=== PATIENT | female | born 1985 | race Caucasian/White ===

== ENCOUNTER → 2016-10-20 | Outpatient (CLI) | payer OTHER ==
[2016-10-20 10:18] LABS: CHOLESTEROL/HDL RATIO 3.2; THYROID STIMULATING HORMONE 3.12 uIu/ml (0.300-4.500)
== END | disposition home or self-care (01) ==
LOC: C.LAB 07:39
PROVIDERS: ATTEND Internal Medicine
DX: Z00.00 Encounter for general adult medical examination without abnormal findings (principal); E03.9 Hypothyroidism, unspecified; Z13.220 Encounter for screening for lipoid disorders; Z13.1 Encounter for screening for diabetes mellitus

== ENCOUNTER → 2016-11-10 | Outpatient (CLI) | payer OTHER | END | disposition home or self-care (01) | LOC: C.PAPS 12:58 | PROVIDERS: ATTEND Physician Assistant | DX: Z01.419 Encounter for gynecological examination (general) (routine) without abnormal findings (principal) ==

== ENCOUNTER → 2016-11-13 | Outpatient (CLI) | payer OTHER ==
--- NOTE | 2016-11-13 14:41 | DIAGNOSTIC IMAGING REPORT ---
RIGHT AXILLARY ULTRASOUND CLINICAL HISTORY: R52 right axillary pain Right COMPARISON STUDY: No previous studies for comparison. FINDINGS: 2 right axillary lymph nodes are visualized. A difficult to visualize deep node demonstrates mild cortical thickening. This is nonspecific. In the absence of a known malignancy this is likely reactive. Clinical follow-up is recommended. A follow-up ultrasound in 3 months would also seem prudent. IMPRESSION: 2 axillary lymph nodes are visualized, one of which demonstrates a mildly thickened cortex. Electronically signed by: Ross Bird M.D. 11/13/2016 2:39 PM Dictated Date/Time: 11/13/2016 2:36 PM
--- NOTE | 2016-11-13 14:51 | DIAGNOSTIC IMAGING REPORT ---
THYROID ULTRASOUND CLINICAL HISTORY: 31-year-old female with swelling and tenderness of the thyroid. TECHNIQUE: Grayscale and limited color Doppler ultrasound imaging of the dilated was performed. COMPARISON: None. FINDINGS: Right lobe: Heterogeneous echotexture of the mildly prominent right thyroid lobe, which measures 5.9 x 2.1 x 1.8 cm. Normal perfusion on color Doppler. No nodules. Left lobe: Similarly heterogeneous echotexture of the mildly prominent left thyroid lobe, which measures 5.2 x 1.9 x 1.7 cm. Slight hyperemia on color Doppler relative to the right. No nodules. Isthmus: Similar heterogeneous echotexture and thickened measuring 6 mm. No nodules. Cervical lymph nodes: Benign-appearing right cervical lymph node measuring 1.2 x 0.5 x 0.67 cm. IMPRESSION: Heterogeneous parenchyma with suggestion of hyperemia especially on the left could suggest acute/subacute thyroiditis. Correlation with TSH and thyroid hormone recommended. Electronically signed by: Jacques Rea M.D. 11/13/2016 2:50 PM Dictated Date/Time: 11/13/2016 2:45 PM
== END | disposition home or self-care (01) ==
LOC: C.ULTR 13:36
PROVIDERS: ATTEND Internal Medicine
DX: R52 Pain, unspecified (principal); R60.9 Edema, unspecified

== ENCOUNTER → 2016-11-23 | Outpatient (CLI) | payer OTHER ==
[2016-11-23 09:34] LABS: HEMATOCRIT 39.1 % (37-47); MEAN CELL VOLUME 86.3 fL (80-100); MEAN CORPUSCULAR HEMOGLOBIN 29.4 pg (25-34); RED BLOOD COUNT 4.53 M/uL (4.2-5.4); WHITE BLOOD COUNT 7.38 K/uL (4.8-10.8)
[2016-11-23 09:35] LABS: BASO % 0.4 %; BASO ABS # 0.03 K/uL (0-0.2); COMPLETE YES; EOS % 2.6 %; IG% 0.3 %; LYMPH % 24.8 %; LYMPH ABS # 1.83 K/uL (1.2-3.4); MEAN PLATELET VOLUME 10.2 fL (7.4-10.4); MONO % 9.3 %; NEUT % 62.6 %; PLATELET COUNT 277 K/uL (130-400)
[2016-11-23 09:56] LABS: C-REACTIVE PROTEIN 1.42 mg/dl (0-0.29); THYROID STIMULATING HORMONE 2.56 uIu/ml (0.300-4.500)
== END | disposition home or self-care (01) ==
LOC: C.LAB 07:50
PROVIDERS: ATTEND Internal Medicine
DX: E03.9 Hypothyroidism, unspecified (principal); D72.829 Elevated white blood cell count, unspecified; E06.9 Thyroiditis, unspecified

== ENCOUNTER → 2016-12-16 | Outpatient (CLI) | payer OTHER | END | disposition home or self-care (01) | LOC: C.LAB 08:10 | PROVIDERS: ATTEND Physician Assistant | DX: E03.9 Hypothyroidism, unspecified (principal) ==

== ENCOUNTER → 2017-02-08 | Outpatient (CLI) | payer OTHER ==
--- NOTE | 2017-02-08 11:31 | DIAGNOSTIC IMAGING REPORT ---
RIGHT AXILLARY ULTRASOUND CLINICAL HISTORY: R22.31 Lump of axilla, rightCompare with ultrasound completed Ju COMPARISON STUDY: Right axillary ultrasound November 13, 2016. FINDINGS: 2 right axillary lymph nodes were again visualized, as shown on exam of November 13, 2016. These were difficult to evaluate given depth within the left axilla with suboptimal penetration. The largest node measured 2.2 x 1.6 x 1.9 cm. This node previously measured 2.5 x 1.4 x 2.4 cm. Allowing for measurement variability, these nodes have not significantly changed. The cortex of these nodes is slightly thickened. IMPRESSION: No significant change in two minimally enlarged right axillary lymph nodes with mild cortical thickening since ultrasound of November 13, 2016. These nodes remain indeterminate and a follow-up right axillary ultrasound in 6 months is recommended. Electronically signed by: Yuri Somers M.D. 02/08/2017 11:30 AM Dictated Date/Time: 02/08/2017 11:26 AM
== END | disposition home or self-care (01) ==
LOC: C.ULTR 10:43
PROVIDERS: ATTEND Internal Medicine
DX: R22.31 Localized swelling, mass and lump, right upper limb (principal); R59.0 Localized enlarged lymph nodes

== ENCOUNTER → 2017-09-09 | Outpatient (CLI) | payer OTHER | END | disposition home or self-care (01) | LOC: C.PATHSPEC 17:03 | PROVIDERS: ATTEND Physician Assistant | DX: D23.72 Other benign neoplasm of skin of left lower limb, including hip (principal); D22.5 Melanocytic nevi of trunk ==

== ENCOUNTER → 2017-12-14 | Outpatient (CLI) | payer OTHER | END | disposition home or self-care (01) | LOC: C.LAB 07:36 | PROVIDERS: ATTEND Physician Assistant | DX: Z00.00 Encounter for general adult medical examination without abnormal findings (principal); E03.9 Hypothyroidism, unspecified ==

== ENCOUNTER 2018-11-29 15:39 | Inpatient (IN) ==
[2018-11-29] MEDS ORDERED: MoRPHine SULFATE 10 MG/ML CARP/VIAL IV STA (16:26)
[2018-11-29] MEDS ORDERED: CEFAZOLIN 2000MG 2,000 MG/15 ML SYR IV STA (16:54)
--- NOTE | 2018-11-29 17:02 | XRay Report ---
XR ankle RT min 3V routine CLINICAL HISTORY: A3 , right open wound/ankle injury trauma. Pain. COMPARISON: None. DISCUSSION: Fracture dislocation right ankle. Oblique fracture distal fibula. Small avulsion tip medi al malleolus. Disrupted ankle mortise. Small heel spur. Considerable soft tissue edema IMPRESSION: Bimalleolar fracture right ankle with disruption of ankle mortise. The above report was generated using voice recognition software. It may contain grammatical, syntax or spelling errors. Electronically signed by: Stoney Patel M.D. 11/29/2018 5:01 PM
--- NOTE | 2018-11-29 17:03 | XRay Report ---
XR foot RT min 3V routine CLINICAL HISTORY: trauma pain COMPARISON: None. DISCUSSION: Bimalleolar fracture right ankle again showing evidence for ankle mortise disruption. Right foot specifically is considered negative for acute bony pathology. Small heel spur is present. Subtalar joint appears to be intact. There is no evidence for soft tissue swelling. IMPRESSION: 1. No acute abnormality specifically of the right foot. 2. Bimalleolar fracture right ankle is again noted. The above report was generated using voice recognition software. It may contain grammatical, syntax or spelling errors. Electronically signed by: Stoney Patel M.D. 11/29/2018 5:02 PM
--- NOTE | 2018-11-29 17:04 | XRay Report ---
XR tibia fibula RT 2V CLINICAL HISTORY: trauma pain COMPARISON: None. DISCUSSION: The bones and joint spaces appear intact. There is no evidence of fracture, dislocation o r bony disease. There is no evidence for soft tissue swelling. Fracture of the ankle is again noted IMPRESSION: 1. Bimalleolar fracture right ankle which has been previously described. 2. No acute process of the proximal aspect of the lower leg. The above report was generated using voice recognition software. It may contain grammatical, syntax or spelling errors. Electronically signed by: Stoney Patel M.D. 11/29/2018 5:03 PM
[2018-11-29 17:06] LABS: Basophils # (auto) 0.03 K/uL (0-0.2); Basophils % (auto) 0.2 %; Eosinophils # (auto) 0.06 K/uL (0-0.5); Eosinophils % (auto) 0.4 %; Hematocrit (blood only) 39.6 % (37-47); Hemoglobin 13.8 g/dL (12.0-16.0); Immature Granulocytes # (auto) 0.05 K/uL (0.00-0.02); Immature Granulocytes % (auto) 0.3 %; Lymphocytes # (auto) 1.64 K/uL (1.2-3.4); Mean Corpuscular Hgb Conc 34.8 g/dL (32-36); Mean Corpuscular Volume 85.9 fL (80-100); Monocytes # (auto) 0.91 K/uL (0.11-0.59); Monocytes % (auto) 6.1 %; Neutrophils # (auto) 12.22 K/uL (1.4-6.5); Platelet Count 314 K/uL (130-400); RDW Coefficient of Variation 12.9 % (11.5-14.5); RDW Standard Deviation 40.3 fL (36.4-46.3); Red Blood Count 4.61 M/uL (4.2-5.4); White Blood Count 14.91 K/uL (4.8-10.8)
[2018-11-29 17:16] LABS: Prothrombin Time 9.9 Seconds (9.0-12.0)
--- NOTE | 2018-11-29 17:20 | History & Physical Report ---
Date of Service November 29, 2018 Assessment & Plan (1) Open ankle fracture: History of Present Illness Primary Care Provider: Jamila Roman MD 33 year old with Open Right Ankle Fracture from wooden stand falling on her earlier today Allergies Allergy/AdvReac Type Severity Reaction Status Date / Time coconut Allergy Mild GI SYMPTOMS Verified 11/29/18 16:07 Penicillins Allergy Mild . Verified 11/29/18 16:07 Home Medications Home Medications Medication Instructions Recorded Confirmed Type levothyroxine 88 mcg PO HS 11/29/18 11/29/18 History Past Med/Surg History Medical History Mood swings (Chronic) Hypothyroidism (Chronic) Elevated WBC count Family History Other Diabetes Heart disease Hypertension Multiple sclerosis Social History Preferred Language: Estonian Feels Safe at Home: Yes Smoking Status: Never smoker Physical Exam Physical Exam: >5 cm medial open wound. Displaced ankle fracture N/V intact. Eyes: PERRL, conjunctivae normal, anicteric sclerae Results & Data Vital Signs (Past 12 Hours) Vital Signs Temp Pulse Pulse Resp BP BP Pulse Ox 11/29/18 17:00 110 H 20 158/105 H 98 11/29/18 15:45 37 C 107 H 20 142/129 H 98
[2018-11-29 17:22] LABS: BUN Creatinine Ratio 13.1 (10-20); Creatinine Clr Calc Pharmacy 110.7 ml/min; Est GFR (African American) 85.1; Est GFR (Non-African American) 73.5; Potassium 3.5 mmol/L (3.5-5.1)
[2018-11-29] MEDS ORDERED: DIPHTHERIA/TETANUS/PERTUSSIS 0.5 ML SYR/VIAL IM ONE (17:37)
[2018-11-29] MEDS ORDERED: ONDANSETRON INJ 2 MG/ML 2 ML VIAL ONE (17:38)
[2018-11-29] MEDS ORDERED: fentaNYL citrate 100 MCG/2 ML VIAL ONE ×2 (17:38→19:03)
[2018-11-29] MEDS ORDERED: LIDOCAINE HCL 2% 2 ML VIAL/AMP(20MG/ML) INFIL ONE (17:38)
[2018-11-29] MEDS ORDERED: MIDAZOLAM HCL 1 MG/ML 2ML VIAL ONE (17:38)
[2018-11-29] MEDS ORDERED: PROPOFOL IV EMULSION 10 MG/ML 20 ML VIAL IV ONE (17:38)
[2018-11-29] MEDS ORDERED: DEXAMETHASONE SOD INJ 4 MG/ML VIAL ONE (17:38)
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
--- NOTE | 2018-11-29 17:40 | XRay Report ---
XR chest 1V portable CLINICAL HISTORY: pre-op trauma COMPARISON STUDY: No previous studies for comparison. FINDINGS: The bones soft tissues and hemidiaphragms are normal. The cardiomediastinal silhouette is n ormal. The lungs are clear. The pulmonary vasculature is normal. IMPRESSION: Negative chest. The above report was generated using voice recognition software. It may contain grammatical, syntax or spelling errors. Electronically signed by: Stoney Patel M.D. 11/29/2018 5:38 PM
[2018-11-29] MEDS ORDERED: BUPIVACAINE/EPINEPHRINE 0.5% MPF 1:200,000 30 ML VIAL ONE (17:41)
[2018-11-29] MEDS ORDERED: BACITRACIN INJ 50,000 UNIT VIAL ONE (17:41)
[2018-11-29] MEDS ORDERED: ROCURONIUM BROMIDE 10 MG/ML 5 ML VIAL ONE (18:11)
[2018-11-29] MEDS ORDERED: SUCCINYLCHOLINE CHLORIDE 20 MG/ML 10 ML VIAL ONE (18:11)
--- NOTE | 2018-11-29 18:29 | Anesthesiology Consultation ---
Date of Service November 29, 2018 Assessment & Plan Chart Review Chart Review: Acceptable Risk for Surgery and Patient NOT seen in Pre Admission Testing ASA [id number] Proposed Anesthesia Anesthesia Type: General History Surgery Operation Date: 11/29/18 17:35 Proposed Procedures p Open Reduction Internal Fixation Ankle(Right) - Uziel Park MD Height/Weight Height: 5 ft 6 in Weight: 132.2 kg Allergies Allergy/AdvReac Type Severity Reaction Status Date / Time coconut Allergy Mild GI SYMPTOMS Verified 11/29/18 16:07 Penicillins Allergy Mild . Verified 11/29/18 16:07 Medications Home Medications Medication Instructions Recorded Confirmed Last Taken levothyroxine 88 mcg PO HS 11/29/18 11/29/18 Unknown NPO Date Last Intake of Fluids: 11/29/18 Time Last Intake of Fluids: 12:00 Date Last Intake of Solids: 11/29/18 Time Last Intake of Solids: 12:00 Past Medical History Medical History Mood swings (Chronic) Hypothyroidism (Chronic) Elevated WBC count Exercise / Class Metabolic Activity II 4-5 Yardwork/Stairs/Walk up hill Past Family History Family History Other Diabetes Heart disease Hypertension Multiple sclerosis Past Anesthesia History No Hx of Anesthesia Complications History of PONV No Hx of PONV Social History Smoking Status: Never smoker Hx Alcohol Use: Yes Alcohol type: beer and wine alcohol intake frequency: a few times a month Hx Substance Use: No Physical Exam Vital Signs Last Vital Signs Temp 37 C 11/29/18 15:45 Pulse 98 H 11/29/18 17:32 Resp 18 11/29/18 17:32 BP 136/86 11/29/18 17:32 Pulse Ox 99 11/29/18 17:32 Constitutional + morbidly obese ENMT Mouth: no dentition abnormality Thyromental Distance: > or= 3.5 Finger Breadths Mallampati Class: II Respiratory normal respiratory effort Auscultation: lungs clear to auscultation bilaterally Cardiovascular Rate/Rhythm: regular rate and regular rhythm Testing Laboratory Results 11/29/18 Unknown 11/29/18 Unknown PT 9.9 Seconds (9.0-12.0) 11/29/18 Unknown INR 1.0 (0.9-1.1) 11/29/18 Unknown Electrocardiogram Date: 11/29/18 Findings: + NSR @ (100)
[2018-11-29] MEDS ORDERED: ePHEDrine sulfate 50 MG/ML AMP IV PRN (18:35)
[2018-11-29] MEDS ORDERED: HYDROmorphone INJ 2 MG/ML SYR/VIAL IV PRN (18:35)
[2018-11-29] MEDS ORDERED: ATROPINE SULFATE 0.1 MG/ML 10ML SYR IV PRN (18:35)
[2018-11-29] MEDS ORDERED: GLYCOPYRROLATE 0.2 MG/ML VIAL ONE (19:09)
[2018-11-29] MEDS ORDERED: NEOSTIGMINE METHYLSULFATE 5 MG/5 ML SYR ONE (19:09)
[2018-11-29] MEDS ORDERED: CEFAZOLIN 250 MG/ML 1 GM VIAL ONE (19:27)
[2018-11-29] MEDS ORDERED: CEFAZOLIN 1000MG 1,000 MG/7.5 ML SYR IV ONE (19:49)
--- NOTE | 2018-11-29 20:23 | Fluoroscopy Report ---
FL ankle RT 2V CLINICAL HISTORY: OPEN FRACTUREfracture COMPARISON STUDY: 11/29/2018 4:34 PM FLUOROSCOPY TIME: 15 seconds NUMBER OF FLUOROSCOPIC IMAGES: 4 FINDINGS: Anatomic alignment post open reduction internal fixation. A plate traverses the distal fibu la. Ankle mortise is now aligned anatomically. IMPRESSION: Anatomic alignment post open reduction internal fixation. The above report was generated using voice recognition software. It may contain grammatical, syntax or spelling errors. Electronically signed by: Stoney Patel M.D. 11/29/2018 8:21 PM
--- NOTE | 2018-11-29 20:33 | Post Operative Brief Note ---
Immediate Post Op Note v1 Date of Surgery November 29, 2018 Pre & Post Diagnosis Operation Date: 11/29/18 17:35 Pre-Op Diagnosis: Right Open Ankle Fracture Post-Op Diagnosis: Right Grade 2 Open Ankle Fracture Procedure Operation Date: 11/29/18 17:35 Actual Procedures p Incision and drainage of right ankle fracture; Open Reduction Internal Fixation Ankle(Right) - Uziel Park MD Surgeon Uziel Park MD Summer Internship None Estimated Blood Loss 20 Findings Consistent with Post-Op Diagnosis Fluids 900 cc Anesthesia Type General Complications none Disposition Accompanied Patient To Recovery: Yes Disposition: Recovery Room
--- NOTE | 2018-11-29 20:44 | Anesthesiology Progress Note ---
Date of Service November 29, 2018 Anesthesia Post Procedure Vital Signs Vital Signs: Temp Pulse Pulse Resp BP BP Pulse Ox 11/29/18 17:32 98 H 18 136/86 99 11/29/18 17:00 110 H 20 158/105 H 98 11/29/18 15:45 37 C 107 H 20 142/129 H 98 Pain Intensity Right Ankle: Pain Intensity: 4 Transfer of Care Handoff Completed per policy Notes Mental Status: alert / awake / arousable Patient Amnestic to Procedure: Yes Nausea / Vomiting: adequately controlled Pain: adequately controlled Airway Patency, RR, SpO2: stable & adequate BP & HR: stable & adequate Hydration State: stable & adequate Anesthetic Complications: no major complications apparent and Pt Satisfied with anesthetic care
[2018-11-29] MEDS ORDERED: ONDANSETRON INJ 2 MG/ML 2 ML VIAL IV PRN (21:34)
[2018-11-29] MEDS ORDERED: METOCLOPRAMIDE HCL INJ 5 MG/ML 2 ML VIAL IV PRN (21:34)
[2018-11-29] MEDS ORDERED: SODIUM CHLORIDE 0.9% 1000ML 1,000 ML IV SCH (21:34)
[2018-11-29] MEDS ORDERED: BISACODYL 10 MG SUPP PR PRN (21:34)
[2018-11-29] MEDS ORDERED: NALOXONE HCL 0.4 MG/1 ML VIAL/CARP IV PRN (21:34)
[2018-11-29] MEDS ORDERED: MAGNESIUM HYDROXIDE SUSP 30 ML UDC PO PRN (21:34)
[2018-11-29] MEDS ORDERED: HYDROmorphone INJ 0.5 MG/0.5 ML SYR IV PRN (21:34)
[2018-11-29] MEDS: OXYCODONE HCL IR 5 MG TAB (IMMEDIATE RELEASE) PO PRN (22:16)
[2018-11-29] MEDS: ASPIRIN 81 MG ECTAB PO SCH (22:36)
[2018-11-29] MEDS: ACETAMINOPHEN 500 MG TAB PO SCH (22:36)
[2018-11-29] MEDS: LEVOTHYROXINE SODIUM 88 MCG TABLET PO SCH (22:37)
[2018-11-29] MEDS: DOCUSATE SODIUM 100 MG CAP PO SCH (22:37)
[2018-11-29] MEDS: SENNA 8.6 MG TAB PO SCH (22:37)
[2018-11-29] MEDS: KETOROLAC 30 MG/ML VIAL IV SCH (23:57)
[2018-11-30] MEDS: CEFAZOLIN 2000MG 2,000 MG/15 ML SYR IV SCH ×3 (02:00→17:57)
[2018-11-30] MEDS ORDERED: COUGH DROP (SUGAR FREE) LOZ 24 LOZ/1 BOX BUCCAL PRN (03:31)
[2018-11-30] MEDS: OXYCODONE HCL IR 5 MG TAB (IMMEDIATE RELEASE) PO PRN ×3 (03:42→16:28)
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
[2018-11-30] MEDS: ACETAMINOPHEN 500 MG TAB PO SCH ×3 (06:15→21:55)
[2018-11-30] MEDS: KETOROLAC 30 MG/ML VIAL IV SCH ×4 (06:15→23:44)
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
[2018-11-30] MEDS: MULTIVITAMIN TAB PO SCH (08:59)
[2018-11-30] MEDS: DOCUSATE SODIUM 100 MG CAP PO SCH ×2 (08:59→20:29)
[2018-11-30] MEDS: ASPIRIN 81 MG ECTAB PO SCH ×2 (08:59→20:29)
--- NOTE | 2018-11-30 18:21 | Progress Note ---
DATE: 11/30/2018 SUBJECTIVE: A 33-year-old female postop day 1 from I&D and ORIF of a grade 2 open right ankle fracture. She is doing pretty well. Pain is controlled. No new complaints. No chest pain or shortness of breath. Not feeling dizzy or lightheaded. OBJECTIVE: VITAL SIGNS: Temperature 36.7. Vital signs stable. PHYSICAL EXAMINATION: GENERAL: Physically physician is a pleasant, middle-aged female. She is sitting up in bed and talking to her family. EXTREMITIES: Examination of the right ankle reveals the dressing to be clean, dry and intact. She can dorsiflex and plantarflex her toes appropriately. She has brisk refill. Still has a little bit of dysesthesias and decreased sensation in her toes. LABORATORY DATA: None. ASSESSMENT: 33-year-old female postop day 1 from I&D and ORIF of a grade 2 open ankle fracture. She is doing pretty well. Did have a pretty significant soft tissue injury. PLAN: 1. DVT prophylaxis including thigh-high TEDs, SCDs, and aspirin twice a day for the next 4-6 weeks. 2. PT/OT. She is strictly nonweightbearing on this right leg. 3. IV antibiotic management. We are going to give her 24-48 hours of IV antibiotics postoperatively. We will keep her overnight and probably send her home tomorrow. 4. Disposition: Plan to discharge to home. She will be nonweightbearing for 2 weeks. I plan to see her back in 2 weeks and assess wound healing at that time.
[2018-11-30] MEDS: SENNA 8.6 MG TAB PO SCH (20:29)
[2018-11-30] MEDS: LEVOTHYROXINE SODIUM 88 MCG TABLET PO SCH (20:29)
[2018-12-01] MEDS: CEFAZOLIN 2000MG 2,000 MG/15 ML SYR IV SCH ×2 (01:59→10:30)
[2018-12-01] MEDS: OXYCODONE HCL IR 5 MG TAB (IMMEDIATE RELEASE) PO PRN ×2 (04:22→11:58)
[2018-12-01] MEDS: ACETAMINOPHEN 500 MG TAB PO SCH (06:16)
[2018-12-01] MEDS: KETOROLAC 30 MG/ML VIAL IV SCH ×2 (06:18→11:54)
[2018-12-01] MEDS: DOCUSATE SODIUM 100 MG CAP PO SCH (08:38)
[2018-12-01] MEDS: MULTIVITAMIN TAB PO SCH (08:38)
[2018-12-01] MEDS: ASPIRIN 81 MG ECTAB PO SCH (08:39)
--- NOTE | 2018-12-01 09:39 | Progress Note ---
DATE: 12/01/2018 SUBJECTIVE: A 33-year-old female postop day 2 from I and D of an open ankle fracture and ORIF. She is doing pretty well. Pain is controlled. No new complaints. OBJECTIVE: VITAL SIGNS: Temperature 36.8. Vital signs stable. Some mild hypertension. PHYSICAL EXAMINATION: GENERAL: Shows a pleasant, middle-aged female. She is lying in bed and talking to a friend. She looks comfortable. EXTREMITIES: Examination of the right ankle reveals the dressing to be clean, dry and intact. She can dorsiflex and plantarflex her foot appropriately. Her sensation is improved in her toes. She has got brisk refill. ASSESSMENT: A 33-year-old female postoperative day 2 from an incision and drainage and open reduction and internal fixation of an open ankle fracture, doing pretty well. She has had some mild hypertension, which can be treated on the outside. Her pain is controlled. PLAN: 1. DVT prophylaxis including thigh-high TEDs, SCDs, and baby aspirin twice a day for the next 4 weeks. 2. PT/OT. She is nonweightbearing on this right ankle for the next 2 weeks. 3. Pain control. Doing well on current pain regimen. 4. Disposition: Plan to discharge to home after her next dose of antibiotics.
--- NOTE | 2018-12-06 17:52 | Discharge Summary ---
ADMITTING PHYSICIAN AND SURGEON: Dr. Uziel Park. ADMITTING DIAGNOSIS: Open right ankle fracture. SURGERY PERFORMED: 1. Irrigation and debridement of a right open ankle fracture. 2. ORIF of a right ankle fracture. SECONDARY DIAGNOSIS: Hypothyroidism. CONSULTS: None obtained. HISTORY AND PHYSICAL EXAMINATION: Well documented in the patient's chart. HOSPITAL COURSE: The patient was admitted on 11/29/2018 with an open ankle fracture. She was taken to the operating room that day and underwent I&D and ORIF of the right ankle fracture. Prior to surgery she had been given tetanus prophylaxis and 2 grams of IV Ancef as well. She tolerated the procedure well. There were no complications. She was transferred to the PACU and later to the orthopedic floor for further care. She was given Ancef for antibiotic prophylaxis, LYNNETTE stockings, SCDs and aspirin for DVT prophylaxis. Vital signs were monitored during hospital stay and remained stable. She had some mild hypertension. Did not require any blood transfusions. There were no complications. By postoperative day 2, she was tolerating a regular diet, pain was controlled with oral pain medicine. She was participating in physical therapy. Postop day 2, she was discharged home. She was given printed discharge instructions as well as new prescriptions for extra strength Tylenol, aspirin and oxycodone. She was given specific instructions to continue nonweightbearing on her right lower extremity, elevate her right leg as much as possible, keep the splint clean and dry until her followup appointment and follow up in approximately 2 weeks postoperatively or sooner if there are any problems or concerns.
== END 2018-12-01 13:07 | disposition home or self-care (01) | DRG 494 ==
LOC: ED 15:39 → OR 18:00 → 3E 20:37